=== PATIENT | male | born 1985 | race Two or more races ===

== ENCOUNTER 2024-10-02 19:05 | Emergency (ER) | payer OTHER ==
[~2024-10-02] VITALS: Ht 167.6 cm; Wt 68.0 kg
[2024-10-02] MEDS ORDERED: KETOROLAC TROMETHAMINE 30 MG VIAL IM STA (21:05)
== END 2024-10-02 21:27 | disposition home or self-care (01) ==
LOC: ER 19:07
DX: B02.9 Zoster without complications (principal); R21 Rash and other nonspecific skin eruption